=== PATIENT | female | born 1965 | race Caucasian/White ===

== ENCOUNTER 2016-11-20 15:39 | Emergency (ER) | payer OTHER ==
[2016-11-20 15:59] VITALS: BP 124/75
[2016-11-20 16:39] LABS: CHLORIDE,CL 99 mmol/L (101-111); SODIUM,NA 138 mmol/L (135-145)
--- NOTE | 2016-11-20 16:40 | EDM.PDOC ---
{null, ED HPI GENERAL MEDICAL PROBLEM - General Chief Complaint: Neurological Problem Stated Complaint: LEFT SIDE, TIGHT, TINGLY, HEAVY Time Seen by Provider: 11/20/16 16:20 Source of Information: Reports: Patient History Limitations: Reports: No Limitations - History of Present Illness INITIAL COMMENTS - FREE TEXT/NARRATIVE: This 51 yo female patient reports to the ED with left sided chest heaviness and a sensation of her heart racing. The patient reports her first symptoms started at about 1000 this morning. Initially, the patient reports she was at home when her symptoms started. The patient reports after her symptoms started she checked her pulse and oxygen level. The patient then had something to eat. The patient reports she went to the grocery store and felt another episode. The patient reports she continues to feel some heaviness in her left chest and left arm. The patient reports she has a past history of COPD and sarcoid. 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 The patient reports she just got off antibiotics (Keflex) last week. The patient reports she also had steroids to start with the antibiotics. Onset: Today Onset Date: 11/20/16 Onset Time: 10:00 Duration: Intermittent Location: Reports: Chest, Upper Extremity, Left, Lower Extremity, Left Quality: Reports: Dull ("heaviness") Severity: Moderate Improves with: Reports: None Worsens with: Reports: None - Related Data Allergies Allergy/AdvReac Type Severity Reaction Status Date / Time Dairy Products Allergy Other Verified 11/20/16 15:59 levofloxacin [From Levaquin] Allergy Muscle Verified 11/20/16 15:59 Aches Home Meds: Home Meds Albuterol [Ventolin HFA] 2 puff INH ASDIRECTED PRN 07/19/15 [History] Budesonide [Pulmicort] 0.5 mg NEB BIDRT #60 neb 10/16/15 [Rx] Ibuprofen 200 mg PO ASDIRECTED 11/20/16 [History] Ipratropium/Albuterol Sulfate [Iprat-Albut 0.5-3(2.5) mg/3 ml] 1 ampule NEB ASDIRECTED PRN 11/20/16 [History] Omeprazole 20 mg PO DAILY 11/20/16 [History] Past Medical History HEENT History: Reports: Impaired Vision Other HEENT History: wears glasses Cardiovascular History: Reports: None Respiratory History: Reports: COPD, Pneumonia, Recurrent Other Respiratory History: broncial cystisis Gastrointestinal History: Reports: Bowel Obstruction, GERD, Hiatal Hernia, Irritable Bowel Syndrome Genitourinary History: Reports: Renal Calculus [employer]ENT History: Reports: Fibroids Musculoskeletal History: Reports: Arthritis Neurological History: Reports: None Psychiatric History: Reports: Other (See Below) Other Psychiatric History: mood disorder Endocrine/Metabolic History: Reports: None Hematologic History: Reports: Other (See Below) Other Hematologic History: IgM deficiency, sarcodosis Immunologic History: Reports: None Oncologic (Cancer) History: Reports: None Dermatologic History: Reports: Eczema - Infectious Disease History Infectious Disease History: Reports: Chicken Pox - Past Surgical History Head Surgeries/Procedures: Reports: None GI Surgical History: Reports: Appendectomy, Colonoscopy, Hernia Repair/Other Female Surgical History: Reports: Hysterectomy, Salpingo-Oophorectomy Other Oncologic Surgeries/Procedures: nodules and lymph node involvment Lung Dermatological Surgical History: Reports: None Social & Family History - Family History Family Medical History: Noncontributory Neurological: Reports: Dementia, Parkinson's, Other (See Below) Endocrine/Metabolic: Reports: Diabetes, type II, Other (See Below) - Tobacco Use Smoking Status *Q: Former Smoker Years of Tobacco use: 20 Packs/Tins Daily: 1 Used Tobacco, but Quit: Yes Month Tobacco Last Used: september Second Hand Smoke Exposure: No - Caffeine Use Caffeine Use: Reports: Coffee - Recreational Drug Use Recreational Drug Use: No - Living Situation & Occupation Living situation: Reports: , with Family Occupation: Employed ED ROS GENERAL - Review of Systems Review Of Systems: ROS reveals no pertinent complaints other than HPI. ED EXAM, GENERAL - Physical Exam Exam: See Below Exam Limited By: No Limitations General Appearance: Alert, WD/WN, Anxious, Mild Distress, Thin Eye Exam: Bilateral Eye: EOMI, Normal Inspection, PERRL Ears: Normal External Exam, Normal Canal, Hearing Grossly Normal, Normal TMs Nose: Normal Inspection, Normal Mucosa, No Blood Throat/Mouth: Normal Inspection, Normal Lips, Normal Teeth, Normal Gums, Normal Oropharynx, Normal Voice, No Airway Compromise Head: Atraumatic, Normocephalic Neck: Normal Inspection, Supple, Non-Tender, Full Range of Motion Respiratory/Chest: No Respiratory Distress, Lungs Clear, No Accessory Muscle Use , Other (left chest wall heaviness) Cardiovascular: Normal Peripheral Pulses, Regular Rate, Rhythm, No Edema, No Gallop, No JVD, No Murmur, No Rub GI/Abdominal: Normal Bowel Sounds, Soft, Non-Tender, No Organomegaly, No Distention, No Abnormal Bruit, No Mass (Female) Exam: Deferred Rectal (Female) Exam: Deferred Back Exam: Normal Inspection, Full Range of Motion, NT Extremities: Normal Inspection, Normal Range of Motion, Non-Tender, Normal Capillary Refill, No Pedal Edema Neurological: Alert, Oriented, CN II-XII Intact, Normal Cognition, Normal Gait, Normal Reflexes, No Motor/Sensory Deficits Psychiatric: Normal Affect, Normal Mood Skin Exam: Warm, Dry, Intact, Normal Color, No Rash Lymphatic: No Adenopathy Course - Vital Signs Last Recorded V/S: Last Vital Signs Temp 35.8 C 11/20/16 15:49 Pulse 81 11/20/16 15:49 Resp 18 11/20/16 15:49 BP 124/75 11/20/16 15:49 Pulse Ox 94 L 11/20/16 15:49 - Orders/Labs/Meds Orders: Active Orders 24 hr Category Date Time Status EKG Documentation Completion [RC] URGENT Care 11/20/16 16:00 Active Labs: Laboratory Tests 11/20/16 11/20/16 Range/Units 16:12 16:12 WBC 9.3 (5.0-10.0) 10^3/uL RBC 4.54 (4.2-5.4) 10^6/uL Hgb 14.0 (12.0-16.0) g/dL Hct 42.6 (37.0-47.0) % MCV 93.8 (80-100) fL MCH 30.8 (27.0-34.0) pg MCHC 32.9 L (33.0-35.0) g/dL Plt Count 335 (150-450) 10^3/uL Neut % (Auto) 71.1 (42.2-75.2) % Lymph % (Auto) 11.4 L (20.5-50.1) % [place] % (Auto) 12.0 H (2-8) % Eos % (Auto) 5.2 H (1.0-3.0) % Baso % (Auto) 0.3 (0.0-1.0) % Sodium 138 (135-145) mmol/L Potassium 4.2 (3.6-5.0) mmol/L Chloride 99 L (101-111) mmol/L Carbon Dioxide 31.0 (21.0-31.0) mmol/L Anion Gap 12.2 BUN 13 (7-18) mg/dL Creatinine 0.7 (0.6-1.3) mg/dL Est Cr Clr Drug Dosing 77.77 mL/min Estimated GFR (MDRD) > 60 BUN/Creatinine Ratio 18.57 Glucose 95 (74-105) mg/dL Calcium 9.2 (8.4-10.2) mg/dl Total Bilirubin 0.3 (0.2-1.0) mg/dL AST 16 (10-42) IU/L ALT 13 (10-60) IU/L Alkaline Phosphatase 71 (42-121) IU/L Troponin I < 0.02 (0.00-0.02) ng/ml Total Protein 7.1 (6.7-8.2) g/dl Albumin 3.6 (3.2-5.5) g/dl Globulin 3.5 Albumin/Globulin Ratio 1.03 Departure - Departure Time of Disposition: 17:36 Disposition: Home, Self-Care 01 Condition: fair Clinical Impression: Non-cardiac chest pain - Discharge Information Instructions: Nonspecific Chest Pain, [id number] Forms: ED Department Discharge Care Plan Goals: The patient was advised of the examination, lab, EKG and x-ray results during the visit. The patient was encouraged to continue to monitor her symptoms. The patient should follow-up with her primary care facilities for continued evaluation and further management. If the patient has any additional symptoms or concerns, the patient should either visit her primary care facility or return to the emergency department. - My Orders Last 24 Hours: My Active Orders 11/20/16 16:00 EKG Documentation Completion [RC] URGENT - Assessment/Plan Last 24 Hours: My Active Orders 11/20/16 16:00 EKG Documentation Completion [RC] URGENT }
--- NOTE | 2016-11-20 17:25 | CR ---
{null, Clinical history: 51-year-old female left-sided chest "heaviness" who was reported on previous CT ex am of October 2015 to have "typical COPD and reactive airway disease". Interpretation: PA lateral chest abnormal but relatively unchanged considering less than optimal ins piratory effort today. Chronic pleural parenchymal scarring, generalized air trapping and prominent proximal pulmonary jaxon ry segments this patient with old lingular infiltrate or fibrosis. Right upper lobe bulla. Normal cardiac silhouette without new cephalization of vascular flow, signs of alveolar edema or dep endent pleural effusion. No new lobar pneumonia. No pneumothorax. CONCLUSION: COPD and lung scarring. No new signs of heart failure or lobar pneumonia. }
--- NOTE | 2016-11-21 16:05 | EKG ---
{null, 11/20/2016 - HANNAH CANALESN - 12-lead EKG shows normal sinus rhythm with heart rate of 67, no significant ST elevation or ST depression noted on this 12-lead EKG. [facility] /[id number] }
== END 2016-11-20 17:50 | disposition home or self-care (01) ==
LOC: DL.ED 15:39
DX: R07.89 Other chest pain (principal); K21.9 Gastro-esophageal reflux disease without esophagitis; F39 Unspecified mood [affective] disorder; J44.9 Chronic obstructive pulmonary disease, unspecified; M19.90 Unspecified osteoarthritis, unspecified site; Z91.011 Allergy to milk products; Z88.8 Allergy status to other drugs, medicaments and biological substances; Z79.899 Other long term (current) drug therapy; Z87.01 Personal history of pneumonia (recurrent); Z90.710 Acquired absence of both cervix and uterus; Z98.890 Other specified postprocedural states; Z87.891 Personal history of nicotine dependence
CPT/HCPCS: 36415; 71020; 80053; 84484; 85025; 93005; 99285

== ENCOUNTER 2017-01-03 06:54 | Day surgery (SDC) | payer OTHER ==
[~2017-01-03 06:54] MED LIST: Dextrose 5%-0.45% NaCl 1,000 ML IV SCH; Midazolam 1 MG/ML 2 ML SDV ONE; Sodium Chloride 0.9% 10 ML Syringe FLUSH PRN; fentaNYL 100 MCG/2 ML SDV ONE
[2017-01-03] MEDS ORDERED: fentaNYL 100 MCG/2 ML SDV IV ONE ×3 (07:26→16:55)
[2017-01-03] MEDS ORDERED: Midazolam 1 MG/ML 2 ML SDV IV ONE ×3 (07:27→16:55)
[2017-01-03 10:00] VITALS: BP 111/67
--- NOTE | 2017-01-03 11:01 | OR ---
DATE: 01/03/2017 PROCEDURE: Esophagogastroduodenoscopy and multiple pinch biopsies. INSTRUMENT USED: GIF-H180 Olympus video panendoscope. PREMEDICATIONS: No oral topical anesthesia used. Fentanyl 100 mcg intravenous, Versed 2 mg intravenous. Nasal O2 cannula. The procedure was done under pulse oximetry, BP recording, and felt cutter. INDICATIONS: The patient with sarcoidosis and scleroderma having regurgitation as well as throat discomfort. Esophagogastroduodenoscopy is performed for detection of any active erosive lesions, Delcid esophagus and/or malignancy also under consideration, esophageal dilatations if indicated, endoscopic hemostasis therapy if needed. DESCRIPTION OF PROCEDURE: The scope was passed with ease. Adequate visualization of the esophagus was made from proximal to distal areas. No upper esophageal lesions identified. No distal esophageal stricture. No uphill or downhill esophageal varices. No Ethel-Horn tear. No evidence of erosive esophagitis by [place] criteria. No esophageal polyp or tumor mass identified. Z-line was seen at around 39 cm distal to the oral verge, configuration consistent with grade 1 by ZAP classification. No proximal gastric varices noted. Gastric fundus examination by retroflexion showed no polypoid lesions. No gastric ulcer, malignant mass, or vascular ectasia identified. Duodenal bulb showed no ulcer. Visualized second part of the duodenum is unremarkable. Multiple pinch biopsies were taken from the gastric antrum and proximal body and sent for PyloriTek test for H. pylori and histopathology. Four quadrant biopsies were taken from the distal and proximal esophagus and sent for any histopathologic evidence of esophageal eosinophilia. No bleeding was noted from any of the visualized areas at the completion of examination. Photographs were taken of the duodenal bulb, gastric antrum, fundus, and distal esophagus. IMPRESSION: Normal study. The patient tolerated the procedure well. [facility] /[id number]
--- NOTE | 2017-01-03 12:20 | LETTER ---
01/03/2017 Haris Charles MD [facility], [address] [place] [address] RE: HANNAH CANALES : [address] Charles: Ms. Hannah Canales had esophagogastroduodenoscopy done this morning and she tolerated the procedure well. I herewith send a copy of the endoscopy note and photographs for your review. Thank you. Sincerely, [facility] /[id number]
== END 2017-01-03 09:30 | disposition home or self-care (01) ==
LOC: DL.ENDO 06:54
PROVIDERS: ATTEND Internal Medicine Gastroenterology
DX: D86.9 Sarcoidosis, unspecified (principal); M34.89 Other systemic sclerosis; R11.10 Vomiting, unspecified; J44.9 Chronic obstructive pulmonary disease, unspecified; Z88.1 Allergy status to other antibiotic agents; Z91.011 Allergy to milk products; Z79.899 Other long term (current) drug therapy; Z90.49 Acquired absence of other specified parts of digestive tract; Z98.890 Other specified postprocedural states; Z98.51 Tubal ligation status
CPT/HCPCS: 43239; 87077; J2250; J3010; J7042